=== PATIENT | male | born 1960 | race African-American/Black ===

== ENCOUNTER 2018-10-11 08:25 | Inpatient (IN) | payer MEDICARE, MEDICAID ==
[~2018-10-11] VITALS: Ht 180.3 cm; Wt 129.8 kg
[~2018-10-11 08:25] MED LIST: ASPI-1159 PO; CALC-25 PO; CALC-30 PO; CHOL200074 PO; DANT25CA PO; DIAZ5TAB PO; FURO40TA5 PO; GABA-529 PO; KLUD20 PO; LIP40 PO; MAGN400T27 PO; MORP30TA66 PO; MULT-348 PO; OMEP20TA2 PO; OXYB5TAB11 PO; OXYC30TA86 PO; PROM25TA13 PO; RANI150C12 PO; RIVA20TA PO; S350 PO; SPIR25TA PO; TAMS0.4C31 PO; WARF-53 PO; ZINC SULFATE PO
[2018-10-11] MEDS ORDERED: MORPHINE SULFATE 4 MG/ML CPJ (NOT FOR IM USE) IV STA (08:41)
[2018-10-11 10:08] LABS: BASOPHILS % 0.4 % (0.0-2.0); EOSINOPHILS % 0.6 % (0.0-5.0); HEMATOCRIT. 40.1 % (42.0-52.0); HEMOGLOBIN. 13.5 g/dL (14.0-18.0); LYMPHOCYTES % 7.9 % (20.0-50.0); MEAN CORPUSCULAR HEMOGLOBIN 33.1 pg (28.0-32.0); MEAN PLATELET VOLUME 7.9 fl (7.4-10.4); MONOCYTES % 7.6 % (2.0-8.0); NEUTROPHILS % 83.5 % (40.0-76.0); PLATELET 227 x1000/uL (130-400); RED BLOOD CELL COUNT 4.09 mill/uL (4.7-6.1); RED CELL DISTRIBUTION WIDTH 15.2 % (11.6-14.6)
[2018-10-11 10:11] LABS: INR 1.4; PROTHROMBIN TIME 14.3 sec (9.1-11.1)
[2018-10-11 10:14] LABS: CHLORIDE 103 mEq/L (98-107)
[2018-10-11] MEDS ORDERED: LEVOFLOXACIN 750MG PREMIX 150 ML IV ONE (11:00)
[2018-10-11] MEDS ORDERED: NA PHOS,M-B/NA PHOS,DI-BA ENEMA 118ML PR PRN (12:30)
[2018-10-11] MEDS ORDERED: NITROGLYCERIN 0.4MG TABLET SL SL PRN (12:30)
[2018-10-11] MEDS ORDERED: TRAMADOL 50MG TABLET PO PRN (12:30)
[2018-10-11] MEDS ORDERED: ENOXAPARIN 40MG/0.4ML SYR SUBCUT SCH (12:30)
[2018-10-11] MEDS ORDERED: GUAIFENESIN 200MG/10ML SUGAR FREE UDC PO PRN (12:30)
[2018-10-11] MEDS ORDERED: MAGNESIUM/ALUMINUM HYDROXIDE/SIMETHICONE 30ML UDC PO PRN (12:30)
[2018-10-11] MEDS ORDERED: LORAZEPAM 1MG TABLET PO PRN (12:30)
[2018-10-11] MEDS ORDERED: ONDANSETRON HCL 4MG/2ML INJ IV PRN (12:30)
[2018-10-11] MEDS ORDERED: ACETAMINOPHEN 325MG TABLET PO PRN (12:30)
[2018-10-11] MEDS ORDERED: CLONIDINE 0.1MG TABLET PO PRN (12:30)
[2018-10-11 12:34] LABS: CLARITY URINE TURBID (CLEAR); KETONES URINE TRACE (NEGATIVE); LEUKOCYTE ESTERASE URINE 3+ (NEGATIVE); NITRITE URINE POSITIVE (NEGATIVE); OCCULT BLOOD URINE 3+ (NEGATIVE); PH URINE 8.5 (4.5-8.0); PROTEIN URINE 4+ (NEGATIVE); SPECIFIC GRAVITY URINE 1.005 (1.005-1.030)
[2018-10-11 12:41] LABS: COLOR URINE AMBER (YELLOW)
[2018-10-11] MEDS ORDERED: LIDOCAINE HCL 1% 20ML VIAL (Pyxis) INJ ONE (13:36)
[2018-10-11] MEDS: SODIUM CHLORIDE 0.9% 1,000 ML IV SCH ×2 (15:13→23:59)
[2018-10-11] MEDS ORDERED: CEFTRIAXONE 1 G PREMIX 50 ML IV NR (15:30)
[2018-10-11] MEDS: MORPHINE SULFATE 4 MG/ML CPJ (NOT FOR IM USE) IV PRN (15:54)
[2018-10-11 16:39] LABS: CREATINE KINASE MB FRACTION 2.3 ng/mL (0.5-3.6)
[2018-10-11] MEDS ORDERED: SODIUM CHLORIDE 0.9% 1000ML BAG (SEPSIS BOLUS) IV ONE (18:45)
[2018-10-11 19:25] VITALS: BP 117/70
[2018-10-11 20:00] VITALS: BP 116/83
[2018-10-11] MEDS ORDERED: SODIUM CHLORIDE 0.9% 2,700 ML IV SCH (20:15)
[2018-10-11] MEDS ORDERED: ZOLPIDEM TARTRATE 5MG TABLET PO PRN (21:00)
[2018-10-11] MEDS ORDERED: IPRATROPIUM/ALBUTEROL 0.5-3(2.5)MG/3ML NEB HHN PRN (23:15)
[2018-10-12] VITALS: BP_SYST 116; BP_SYST 137; BP_DIAS 86
[2018-10-12] MEDS: MORPHINE SULFATE 4 MG/ML CPJ (NOT FOR IM USE) IV PRN ×6 (00:06→21:57)
[2018-10-12 04:00] VITALS: BP 118/73
[2018-10-12 08:00] VITALS: BP 122/71
[2018-10-12] MEDS: SODIUM CHLORIDE 0.9% 1,000 ML IV SCH ×2 (08:45→21:42)
[2018-10-12] MEDS ORDERED: CEFTRIAXONE 1 G PREMIX 50 ML IV SCH (09:00)
[2018-10-12] MEDS ORDERED: LEVOFLOXACIN 500MG PREMIX 100 ML IV SCH (10:00)
[2018-10-12] MEDS ORDERED: DEXTROSE 50% WATER 50ML SYRINGE IV PRN (10:15)
[2018-10-12] MEDS: ASCORBIC ACID 500 MG TABLET PO SCH ×3 (11:26→21:39)
[2018-10-12] MEDS: FAMOTIDINE 20MG TABLET PO SCH ×3 (11:26→21:39)
[2018-10-12] MEDS: HYDROCODONE/ACETAMINOPHEN 10/325MG TABLET PO PRN (11:27)
[2018-10-12] MEDS: ZINC SULFATE 220 MG ( 50 ) CAPSULE PO SCH (11:27)
[2018-10-12 12:00] VITALS: BP 113/78
[2018-10-12] MEDS ORDERED: PNEUMOCOCCAL 23-VAL P-SAC VAC 0.5 ML IM ONE (12:00)
[2018-10-12] MEDS ORDERED: INFLUENZA VIRUS VACCINE(AFLURIA) 0.5ML SYR IM ONE (12:00)
[2018-10-12] MEDS: BLOOD SUGAR DIAGNOSTIC STRIP TEST SCH ×3 (13:00→21:56)
[2018-10-12] MEDS: INSULIN LISPRO 100 UNITS/ML SUBCUT SCH ×3 (13:10→21:00)
[2018-10-12 16:36] VITALS: BP 118/79
[2018-10-12] MEDS: GABAPENTIN 300MG CAPSULE PO SCH ×2 (18:07→21:40)
[2018-10-12] MEDS: RIVAROXABAN 20 MG TABLET PO SCH ×2 (18:07)
[2018-10-12] MEDS: BACLOFEN 20MG TABLET PO SCH ×2 (18:07→21:40)
[2018-10-12 20:00] VITALS: BP 129/66
[2018-10-12] MEDS: IPRATROPIUM/ALBUTEROL 0.5-3(2.5)MG/3ML NEB HHN SCH (20:46)
[2018-10-13] VITALS (7 sets, daily range): BP systolic 102–155; BP diastolic 54–88
[2018-10-13] MEDS: ACETYLCYSTEINE 100MG/ML 10% VIAL 4ML INH SCH ×3 (01:01→13:38)
[2018-10-13] MEDS: IPRATROPIUM/ALBUTEROL 0.5-3(2.5)MG/3ML NEB HHN SCH ×4 (01:01→19:59)
[2018-10-13] MEDS: SODIUM CHLORIDE 0.9% 1,000 ML IV SCH ×2 (05:02→18:16)
[2018-10-13] MEDS: GABAPENTIN 300MG CAPSULE PO SCH ×3 (05:06→21:23)
[2018-10-13] MEDS: BACLOFEN 20MG TABLET PO SCH ×3 (05:07→21:23)
[2018-10-13] MEDS: MORPHINE SULFATE 4 MG/ML CPJ (NOT FOR IM USE) IV PRN ×4 (05:25→19:44)
[2018-10-13] MEDS: BLOOD SUGAR DIAGNOSTIC STRIP TEST SCH ×4 (05:59→20:53)
[2018-10-13] MEDS: INSULIN LISPRO 100 UNITS/ML SUBCUT SCH ×4 (08:10→21:00)
[2018-10-13] MEDS: ZINC SULFATE 220 MG ( 50 ) CAPSULE PO SCH (09:31)
[2018-10-13] MEDS: ASCORBIC ACID 500 MG TABLET PO SCH ×2 (09:31→21:23)
[2018-10-13] MEDS: FAMOTIDINE 20MG TABLET PO SCH ×2 (09:31→21:23)
[2018-10-13] MEDS: LEVOFLOXACIN 500MG PREMIX 100 ML IV SCH (09:52)
[2018-10-13] MEDS: CEFTRIAXONE 1 G PREMIX 50 ML IV SCH (11:30)
[2018-10-13 17:27] LABS: CREATINE KINASE MB FRACTION 1.5 ng/mL (0.5-3.6)
[2018-10-13] MEDS: RIVAROXABAN 20 MG TABLET PO SCH (17:30)
[2018-10-13] MEDS: HYDROCODONE/ACETAMINOPHEN 10/325MG TABLET PO PRN (20:53)
[2018-10-14] VITALS: BP 122/64
[2018-10-14] MEDS: MORPHINE SULFATE 4 MG/ML CPJ (NOT FOR IM USE) IV PRN ×5 (00:34→23:09)
[2018-10-14] MEDS: IPRATROPIUM/ALBUTEROL 0.5-3(2.5)MG/3ML NEB HHN SCH ×4 (01:33→21:00)
[2018-10-14] MEDS: ACETYLCYSTEINE 100MG/ML 10% VIAL 4ML INH SCH ×3 (01:33→09:28)
[2018-10-14 04:00] VITALS: BP 133/72
[2018-10-14] MEDS: SODIUM CHLORIDE 0.9% 1,000 ML IV SCH ×3 (05:00→20:17)
[2018-10-14] MEDS: BACLOFEN 20MG TABLET PO SCH ×3 (06:01→22:08)
[2018-10-14] MEDS: GABAPENTIN 300MG CAPSULE PO SCH ×3 (06:01→22:08)
[2018-10-14] MEDS: BLOOD SUGAR DIAGNOSTIC STRIP TEST SCH ×4 (06:01→21:00)
[2018-10-14] MEDS: INSULIN LISPRO 100 UNITS/ML SUBCUT SCH ×4 (07:47→21:00)
[2018-10-14 08:00] VITALS: BP 134/74
[2018-10-14] MEDS: FAMOTIDINE 20MG TABLET PO SCH ×2 (09:51→21:00)
[2018-10-14] MEDS: ZINC SULFATE 220 MG ( 50 ) CAPSULE PO SCH (09:51)
[2018-10-14] MEDS: ASCORBIC ACID 500 MG TABLET PO SCH ×2 (09:52→21:00)
[2018-10-14] MEDS: CEFTRIAXONE 1 G PREMIX 50 ML IV SCH (09:52)
[2018-10-14] MEDS: LEVOFLOXACIN 500MG PREMIX 100 ML IV SCH (10:00)
[2018-10-14 12:00] VITALS: BP 140/89
[2018-10-14 16:00] VITALS: BP 146/87
[2018-10-14] MEDS: BISACODYL 10MG SUPP PR PRN (18:32)
[2018-10-14] MEDS: RIVAROXABAN 20 MG TABLET PO SCH (18:32)
[2018-10-15 00:27] VITALS: BP 131/59
[2018-10-15] MEDS: IPRATROPIUM/ALBUTEROL 0.5-3(2.5)MG/3ML NEB HHN SCH ×4 (01:25→20:53)
[2018-10-15] MEDS: ACETYLCYSTEINE 100MG/ML 10% VIAL 4ML INH SCH ×3 (01:26→15:07)
[2018-10-15] MEDS: MORPHINE SULFATE 4 MG/ML CPJ (NOT FOR IM USE) IV PRN ×5 (02:07→21:56)
[2018-10-15 04:00] VITALS: BP_SYST 181; BP_SYST 213; BP_DIAS 105; BP_DIAS 87
[2018-10-15] MEDS: HYDROCODONE/ACETAMINOPHEN 10/325MG TABLET PO PRN ×3 (04:32→15:21)
[2018-10-15] MEDS: BACLOFEN 20MG TABLET PO SCH ×3 (05:33→21:18)
[2018-10-15] MEDS: GABAPENTIN 300MG CAPSULE PO SCH ×3 (05:33→21:18)
[2018-10-15] MEDS: SODIUM CHLORIDE 0.9% 1,000 ML IV SCH ×2 (06:17→21:18)
[2018-10-15] MEDS: BLOOD SUGAR DIAGNOSTIC STRIP TEST SCH ×4 (06:19→21:10)
[2018-10-15 08:00] VITALS: BP 173/88
[2018-10-15] MEDS: INSULIN LISPRO 100 UNITS/ML SUBCUT SCH ×4 (08:26→21:00)
[2018-10-15] MEDS: CEFTRIAXONE 1 G PREMIX 50 ML IV SCH (09:31)
[2018-10-15] MEDS: ASCORBIC ACID 500 MG TABLET PO SCH ×2 (09:31→21:18)
[2018-10-15] MEDS: ZINC SULFATE 220 MG ( 50 ) CAPSULE PO SCH (09:31)
[2018-10-15] MEDS: FAMOTIDINE 20MG TABLET PO SCH ×2 (09:31→21:18)
[2018-10-15] MEDS: NIFEDIPINE XL 60MG TAB PO SCH (11:00)
[2018-10-15 12:00] VITALS: BP 103/48
[2018-10-15 16:00] VITALS: BP 113/60
[2018-10-15] MEDS: RIVAROXABAN 20 MG TABLET PO SCH (17:44)
[2018-10-15 20:00] VITALS: BP 109/63
[2018-10-16] VITALS: BP 133/73
[2018-10-16] MEDS: HYDROCODONE/ACETAMINOPHEN 10/325MG TABLET PO PRN ×6 (00:04→22:35)
[2018-10-16] MEDS: IPRATROPIUM/ALBUTEROL 0.5-3(2.5)MG/3ML NEB HHN SCH ×4 (00:51→21:42)
[2018-10-16] MEDS: ACETYLCYSTEINE 100MG/ML 10% VIAL 4ML INH SCH ×2 (00:51→21:41)
[2018-10-16] MEDS: MORPHINE SULFATE 4 MG/ML CPJ (NOT FOR IM USE) IV PRN ×5 (02:22→19:42)
[2018-10-16 04:00] VITALS: BP 114/63
[2018-10-16] MEDS: GABAPENTIN 300MG CAPSULE PO SCH ×3 (05:59→21:43)
[2018-10-16] MEDS: BACLOFEN 20MG TABLET PO SCH ×3 (05:59→21:43)
[2018-10-16] MEDS: BISACODYL 10MG SUPP PR PRN (06:27)
[2018-10-16] MEDS: INSULIN LISPRO 100 UNITS/ML SUBCUT SCH ×4 (07:41→21:43)
[2018-10-16] MEDS: BLOOD SUGAR DIAGNOSTIC STRIP TEST SCH ×4 (07:41→20:36)
[2018-10-16 08:00] VITALS: BP 126/64
[2018-10-16] MEDS: NIFEDIPINE XL 60MG TAB PO SCH (09:00)
[2018-10-16] MEDS: ZINC SULFATE 220 MG ( 50 ) CAPSULE PO SCH (09:00)
[2018-10-16] MEDS: CEFTRIAXONE 1 G PREMIX 50 ML IV SCH (09:20)
[2018-10-16] MEDS: ASCORBIC ACID 500 MG TABLET PO SCH ×2 (09:21→21:43)
[2018-10-16] MEDS: FAMOTIDINE 20MG TABLET PO SCH ×2 (09:21→21:43)
[2018-10-16] MEDS: SODIUM CHLORIDE 0.9% 1,000 ML IV SCH ×3 (12:17→22:17)
[2018-10-16 16:00] VITALS: BP 100/58
[2018-10-16] MEDS: RIVAROXABAN 20 MG TABLET PO SCH (17:24)
[2018-10-16 20:00] VITALS: BP 105/67
[2018-10-17] VITALS: BP 113/64
[2018-10-17] MEDS: MORPHINE SULFATE 4 MG/ML CPJ (NOT FOR IM USE) IV PRN ×6 (01:01→22:00)
[2018-10-17] MEDS: ACETYLCYSTEINE 100MG/ML 10% VIAL 4ML INH SCH ×4 (03:33→15:39)
[2018-10-17] MEDS: IPRATROPIUM/ALBUTEROL 0.5-3(2.5)MG/3ML NEB HHN SCH ×4 (03:33→21:09)
[2018-10-17 04:00] VITALS: BP 109/66
[2018-10-17] MEDS: HYDROCODONE/ACETAMINOPHEN 10/325MG TABLET PO PRN (04:23)
[2018-10-17] MEDS: BACLOFEN 20MG TABLET PO SCH ×3 (05:41→21:50)
[2018-10-17] MEDS: GABAPENTIN 300MG CAPSULE PO SCH ×3 (05:41→21:53)
[2018-10-17] MEDS: BLOOD SUGAR DIAGNOSTIC STRIP TEST SCH ×4 (06:51→21:50)
[2018-10-17 08:00] VITALS: BP 108/63
[2018-10-17] MEDS: INSULIN LISPRO 100 UNITS/ML SUBCUT SCH ×4 (08:10→21:00)
[2018-10-17] MEDS: SODIUM CHLORIDE 0.9% 1,000 ML IV SCH ×2 (08:17→20:25)
[2018-10-17] MEDS: NIFEDIPINE XL 60MG TAB PO SCH (09:00)
[2018-10-17] MEDS: ASCORBIC ACID 500 MG TABLET PO SCH ×2 (09:05→21:50)
[2018-10-17] MEDS: FAMOTIDINE 20MG TABLET PO SCH ×2 (09:05→21:50)
[2018-10-17] MEDS: ZINC SULFATE 220 MG ( 50 ) CAPSULE PO SCH (09:06)
[2018-10-17 12:00] VITALS: BP 135/52
[2018-10-17] MEDS: CEPHALEXIN 250MG CAPSULE PO SCH ×2 (12:00→17:57)
[2018-10-17] MEDS ORDERED: CEPHALEXIN 250 MG/5 ML 100ML PO SCH (12:00)
[2018-10-17 16:00] VITALS: BP 117/58
[2018-10-17] MEDS: RIVAROXABAN 20 MG TABLET PO SCH (17:57)
[2018-10-17 20:00] VITALS: BP 124/88
[2018-10-18] VITALS: BP 124/79
[2018-10-18] MEDS: CEPHALEXIN 250MG CAPSULE PO SCH ×5 (00:28→23:49)
[2018-10-18] MEDS: SODIUM CHLORIDE 0.9% 1,000 ML IV SCH ×3 (00:36→23:36)
[2018-10-18] MEDS: IPRATROPIUM/ALBUTEROL 0.5-3(2.5)MG/3ML NEB HHN SCH ×4 (01:24→20:59)
[2018-10-18] MEDS: ACETYLCYSTEINE 100MG/ML 10% VIAL 4ML INH SCH (01:24)
[2018-10-18] MEDS: MORPHINE SULFATE 4 MG/ML CPJ (NOT FOR IM USE) IV PRN ×6 (02:15→23:36)
[2018-10-18] MEDS: BACLOFEN 20MG TABLET PO SCH ×3 (05:32→21:03)
[2018-10-18] MEDS: GABAPENTIN 300MG CAPSULE PO SCH ×3 (05:32→21:03)
[2018-10-18] MEDS: BLOOD SUGAR DIAGNOSTIC STRIP TEST SCH ×3 (06:29→20:44)
[2018-10-18 06:44] VITALS: BP 110/70
[2018-10-18] MEDS: INSULIN LISPRO 100 UNITS/ML SUBCUT SCH ×3 (08:10→20:44)
[2018-10-18 08:15] VITALS: BP 126/74
[2018-10-18] MEDS: DOCUSATE SODIUM 100MG CAPSULE PO PRN ×2 (09:08→17:31)
[2018-10-18] MEDS: ZINC SULFATE 220 MG ( 50 ) CAPSULE PO SCH (09:08)
[2018-10-18] MEDS: NIFEDIPINE XL 60MG TAB PO SCH (09:08)
[2018-10-18] MEDS: FAMOTIDINE 20MG TABLET PO SCH ×2 (09:08→21:04)
[2018-10-18] MEDS: ASCORBIC ACID 500 MG TABLET PO SCH ×2 (09:08→21:03)
[2018-10-18] MEDS: BISACODYL 10MG SUPP PR PRN (10:26)
[2018-10-18 12:29] VITALS: BP 153/74
[2018-10-18] MEDS: HYDROCODONE/ACETAMINOPHEN 10/325MG TABLET PO PRN ×3 (13:17→21:37)
[2018-10-18 16:00] VITALS: BP 106/62
[2018-10-18] MEDS: RIVAROXABAN 20 MG TABLET PO SCH (17:30)
[2018-10-18 20:00] VITALS: BP 109/58
[2018-10-18] MEDS ORDERED: SUMA25TA9 PO (23:22)
[2018-10-19] VITALS (7 sets, daily range): BP systolic 99–115; BP diastolic 50–61
[2018-10-19] MEDS: HYDROCODONE/ACETAMINOPHEN 10/325MG TABLET PO PRN ×3 (01:42→20:12)
[2018-10-19] MEDS: IPRATROPIUM/ALBUTEROL 0.5-3(2.5)MG/3ML NEB HHN SCH ×4 (02:20→21:00)
[2018-10-19] MEDS: MORPHINE SULFATE 4 MG/ML CPJ (NOT FOR IM USE) IV PRN ×5 (03:42→23:48)
[2018-10-19] MEDS: BACLOFEN 20MG TABLET PO SCH ×3 (04:56→22:16)
[2018-10-19] MEDS: GABAPENTIN 300MG CAPSULE PO SCH ×3 (04:56→22:15)
[2018-10-19] MEDS: CEPHALEXIN 250MG CAPSULE PO SCH ×3 (04:57→17:37)
[2018-10-19] MEDS: ASCORBIC ACID 500 MG TABLET PO SCH ×2 (07:33→20:12)
[2018-10-19] MEDS: FAMOTIDINE 20MG TABLET PO SCH ×2 (07:33→20:11)
[2018-10-19] MEDS: ZINC SULFATE 220 MG ( 50 ) CAPSULE PO SCH (07:33)
[2018-10-19] MEDS: NIFEDIPINE XL 60MG TAB PO SCH (07:33)
[2018-10-19] MEDS: INSULIN LISPRO 100 UNITS/ML SUBCUT SCH ×4 (07:34→21:00)
[2018-10-19] MEDS: BLOOD SUGAR DIAGNOSTIC STRIP TEST SCH ×4 (07:40→20:13)
[2018-10-19] MEDS: SODIUM CHLORIDE 0.9% 1,000 ML IV SCH (10:17)
[2018-10-19] MEDS: BUTALBITAL/ACETAMINOPHEN/CAFFEINE 50/325/40MG TABLET PO PRN (15:24)
[2018-10-19] MEDS: RIVAROXABAN 20 MG TABLET PO SCH (17:37)
[2018-10-19] MEDS: GUAIFENESIN 600MG ER TABLET PO SCH (20:11)
[2018-10-20] VITALS: BP 99/60
[2018-10-20] MEDS: CEPHALEXIN 250MG CAPSULE PO SCH ×2 (00:21→06:43)
[2018-10-20] MEDS: IPRATROPIUM/ALBUTEROL 0.5-3(2.5)MG/3ML NEB HHN SCH ×2 (02:03→08:54)
[2018-10-20] MEDS: HYDROCODONE/ACETAMINOPHEN 10/325MG TABLET PO PRN (02:18)
[2018-10-20 04:00] VITALS: BP 91/48
[2018-10-20] MEDS: MORPHINE SULFATE 4 MG/ML CPJ (NOT FOR IM USE) IV PRN ×2 (05:31→09:38)
[2018-10-20] MEDS: BUTALBITAL/ACETAMINOPHEN/CAFFEINE 50/325/40MG TABLET PO PRN (05:47)
[2018-10-20] MEDS: BACLOFEN 20MG TABLET PO SCH (06:43)
[2018-10-20] MEDS: BLOOD SUGAR DIAGNOSTIC STRIP TEST SCH (06:43)
[2018-10-20] MEDS: GABAPENTIN 300MG CAPSULE PO SCH (06:43)
[2018-10-20] MEDS: INSULIN LISPRO 100 UNITS/ML SUBCUT SCH (08:10)
[2018-10-20] MEDS: GUAIFENESIN 600MG ER TABLET PO SCH (09:03)
[2018-10-20] MEDS: ZINC SULFATE 220 MG ( 50 ) CAPSULE PO SCH (09:03)
[2018-10-20] MEDS: FAMOTIDINE 20MG TABLET PO SCH (09:03)
[2018-10-20] MEDS: NIFEDIPINE XL 60MG TAB PO SCH (09:03)
[2018-10-20] MEDS: ASCORBIC ACID 500 MG TABLET PO SCH (09:19)
[2018-10-20 09:38] VITALS: BP 180/72
[2018-10-20 10:25] LABS: BASOPHILS % 0.6 % (0.0-2.0); EOSINOPHILS % 5.6 % (0.0-5.0); HEMATOCRIT. 35.2 % (42.0-52.0); HEMOGLOBIN. 11.9 g/dL (14.0-18.0); LYMPHOCYTES % 27.4 % (20.0-50.0); MEAN CORPUSCULAR HEMOGLOBIN 32.7 pg (28.0-32.0); MEAN PLATELET VOLUME 7.7 fl (7.4-10.4); MONOCYTES % 11.4 % (2.0-8.0); PLATELET 192 x1000/uL (130-400); RED BLOOD CELL COUNT 3.63 mill/uL (4.7-6.1); RED CELL DISTRIBUTION WIDTH 15.3 % (11.6-14.6)
[2018-10-20 10:34] LABS: CHLORIDE 106 mEq/L (98-107)
== END 2018-10-20 12:30 | disposition home health service (06) | DRG 871 ==
LOC: ER 08:44 → 7WST 11:54 → SUPCPDRO 12:16 → ENRESERV 17:06 → 7WST 10-12 09:42
PROVIDERS: ADMIT Internal Medicine; ATTEND Internal Medicine
PROC: 05HY33Z Insertion of Infusion Device into Upper Vein, Percutaneous Approach (ICD-10-PCS; 2018-10-11)
PROC: B54NZZA Ultrasonography of Left Upper Extremity Veins, Guidance (ICD-10-PCS; 2018-10-11)
PROC: 0T2BX0Z Change Drainage Device in Bladder, External Approach (ICD-10-PCS; principal; 2018-10-12)
DX: A41.4 Sepsis due to anaerobes (principal); G82.50 Quadriplegia, unspecified; G92 Toxic encephalopathy; J96.20 Acute and chronic respiratory failure, unspecified whether with hypoxia or hypercapnia; E44.1 Mild protein-calorie malnutrition; I82.412 Acute embolism and thrombosis of left femoral vein; N12 Tubulo-interstitial nephritis, not specified as acute or chronic; T83.020A Displacement of cystostomy catheter, initial encounter; R65.20 Severe sepsis without septic shock; I10 Essential (primary) hypertension; J45.909 Unspecified asthma, uncomplicated; E11.9 Type 2 diabetes mellitus without complications; D63.8 Anemia in other chronic diseases classified elsewhere; N31.9 Neuromuscular dysfunction of bladder, unspecified; K59.00 Constipation, unspecified; E66.9 Obesity, unspecified; L97.529 Non-pressure chronic ulcer of other part of left foot with unspecified severity; E11.621 Type 2 diabetes mellitus with foot ulcer; Y83.8 Other surgical procedures as the cause of abnormal reaction of the patient, or of later complication, without mention of misadventure at the time of the procedure; Z86.718 Personal history of other venous thrombosis and embolism; Z93.0 Tracheostomy status; Z88.1 Allergy status to other antibiotic agents; Z79.899 Other long term (current) drug therapy; Y92.89 Other specified places as the place of occurrence of the external cause
CPT/HCPCS: 36415; 36569; 71045; 73130; 74176; 76937; 80048; 80061; 82550; 82553; 82962; 83036; 83605; 84484; 87077; 87186; 90686; 90732; 93308; 93970; 94640; 96365; 96366; 96368; 97110; 97162; 99285; A6261; C1725; C1893; J0696; J1815; J1956; J2270; J2405; J3490; J7040; J7608; J7620; A4315

== ENCOUNTER 2018-10-22 11:29 | Inpatient (IN) | payer MEDICARE, MEDICAID ==
[~2018-10-22] VITALS: Ht 182.9 cm; Wt 102.1 kg
[~2018-10-22 11:29] MED LIST changes: +SUMA25TA9 PO
[2018-10-22] MEDS ORDERED: PIPERACILLIN/TAZ 3.375G PREMIX 50 ML IV ONE (12:00)
[2018-10-22] MEDS ORDERED: SODIUM CHLORIDE 0.9% 1000ML BAG (SEPSIS BOLUS) IV ONE (12:00)
[2018-10-22] MEDS ORDERED: VANCOMYCIN 1 G PREMIX 200 ML IV ONE (12:00)
[2018-10-22 13:13] LABS: EOSINOPHILS % 4.8 % (0.0-5.0); HEMATOCRIT. 35.6 % (42.0-52.0); LYMPHOCYTES % 22.8 % (20.0-50.0); MEAN CORPUSCULAR HEMOGLOBIN 33.1 pg (28.0-32.0); MEAN CORPUSCULAR VOLUME 98.4 fL (80.0-94.0); MEAN PLATELET VOLUME 7.4 fl (7.4-10.4); MONOCYTES % 12.8 % (2.0-8.0); NEUTROPHILS % 58.6 % (40.0-76.0); PLATELET 214 x1000/uL (130-400); RED BLOOD CELL COUNT 3.62 mill/uL (4.7-6.1); RED CELL DISTRIBUTION WIDTH 15.6 % (11.6-14.6)
[2018-10-22 13:19] LABS: CHLORIDE 98 mEq/L (98-107)
[2018-10-22] MEDS ORDERED: LIDOCAINE HCL 1% 20ML VIAL (Pyxis) INJ ONE (13:46)
[2018-10-22] MEDS ORDERED: HYDROCODONE/ACETAMINOPHEN 5/325MG TABLET PO ONE (15:30)
[2018-10-22 16:08] LABS: CLARITY URINE CLEAR (CLEAR); COLOR URINE YELLOW (YELLOW); KETONES URINE NEGATIVE (NEGATIVE); LEUKOCYTE ESTERASE URINE 2+ (NEGATIVE); NITRITE URINE POSITIVE (NEGATIVE); OCCULT BLOOD URINE 1+ (NEGATIVE); PROTEIN URINE NEGATIVE (NEGATIVE); SPECIFIC GRAVITY URINE 1.009 (1.005-1.030); UROBILINOGEN URINE 0.2 E.U./dL (0.2-1.0)
[2018-10-22] MEDS ORDERED: IBUPROFEN 600MG TABLET PO ONE (17:15)
[2018-10-22] MEDS ORDERED: MORPHINE SULFATE 4 MG/ML CPJ (NOT FOR IM USE) IV ONE (18:00)
[2018-10-22] MEDS ORDERED: MORPHINE SULFATE 4 MG/ML CPJ (NOT FOR IM USE) IV NR (23:00)
[2018-10-23 03:05] VITALS: BP 143/68
[2018-10-23] MEDS: HYDROCODONE/ACETAMINOPHEN 10/325MG TABLET PO PRN ×3 (05:33→14:45)
[2018-10-23 08:00] VITALS: BP 122/63
[2018-10-23] MEDS ORDERED: ACETAMINOPHEN 650MG SUPP PR PRN (08:15)
[2018-10-23] MEDS ORDERED: ACETAMINOPHEN 325MG TABLET PO PRN (08:15)
[2018-10-23] MEDS ORDERED: CLONIDINE 0.1MG TABLET PO PRN (08:15)
[2018-10-23] MEDS ORDERED: DIPHENHYDRAMINE 50MG/ML VIAL IV PRN (08:15)
[2018-10-23] MEDS ORDERED: DOCUSATE SODIUM 100MG CAPSULE PO PRN (08:15)
[2018-10-23] MEDS ORDERED: HYDROCODONE/ACETAMINOPHEN 5/325MG TABLET PO PRN (08:15)
[2018-10-23] MEDS ORDERED: MAGNESIUM/ALUMINUM HYDROXIDE/SIMETHICONE 30ML UDC PO PRN (08:15)
[2018-10-23] MEDS ORDERED: ONDANSETRON HCL 4MG/2ML INJ IV PRN (08:15)
[2018-10-23] MEDS ORDERED: GUAIFENESIN 200MG/10ML SUGAR FREE UDC PO PRN (08:15)
[2018-10-23] MEDS ORDERED: ENOXAPARIN 40MG/0.4ML SYR SUBCUT SCH (09:00)
[2018-10-23] MEDS ORDERED: IPRATROPIUM/ALBUTEROL 0.5-3(2.5)MG/3ML NEB INH PRN (09:00)
[2018-10-23 12:00] VITALS: BP 121/67
[2018-10-23] MEDS: SODIUM CHLORIDE 0.9% INJ 3ML FLUSH IVF SCH ×2 (14:45→21:06)
[2018-10-23] MEDS: IPRATROPIUM/ALBUTEROL 0.5-3(2.5)MG/3ML NEB INH SCH ×2 (15:40→21:31)
[2018-10-23 16:00] VITALS: BP 119/62
[2018-10-23] MEDS ORDERED: SUMATRIPTAN SUCCINATE 25MG TABLET PO SCH (18:15)
[2018-10-23] MEDS ORDERED: WARFARIN SODIUM 5MG TABLET PO SCH (18:15)
[2018-10-23] MEDS ORDERED: MEDICATION NOT ON FORMULARY EA (Ranitidine Hcl 150 MG) PO SCH (18:15)
[2018-10-23] MEDS ORDERED: ASPIRIN 81MG EC TABLET PO SCH (18:15)
[2018-10-23] MEDS ORDERED: PROMETHAZINE HCL 25 MG PO PRN (18:15)
[2018-10-23] MEDS ORDERED: FUROSEMIDE 40MG TABLET PO SCH (18:15)
[2018-10-23] MEDS ORDERED: MORPHINE SULFATE 15MG TABLET SR PO NR (19:00)
[2018-10-23] MEDS: MULTIVITAMINS,THER W-MINERALS TABLET PO SCH (19:18)
[2018-10-23] MEDS: ATORVASTATIN CALCIUM 40MG TABLET PO SCH (19:18)
[2018-10-23] MEDS: GABAPENTIN 100MG CAPSULE PO SCH (19:18)
[2018-10-23] MEDS: OMEPRAZOLE 20MG CAPSULE EXTENDED RELEASE PO SCH (19:18)
[2018-10-23] MEDS: MAGNESIUM OXIDE 400MG TABLET PO SCH (19:18)
[2018-10-23] MEDS: CALCIUM CARBONATE/VITAMIN D3 500MG TABLET PO SCH (19:18)
[2018-10-23] MEDS: OXYBUTYNIN CHLORIDE 5MG TABLET PO SCH (19:19)
[2018-10-23] MEDS: CHOLECALCIFEROL (D3) 1000 UNIT TABLET PO SCH (19:19)
[2018-10-23 20:00] VITALS: BP 122/62
[2018-10-23] MEDS: RIVAROXABAN 20 MG TABLET PO SCH (21:05)
[2018-10-23] MEDS: TAMSULOSIN HCL 0.4MG SR CAPSULE PO SCH (21:05)
[2018-10-23] MEDS: DANTROLENE SODIUM 25MG CAPSULE PO SCH (21:05)
[2018-10-23] MEDS ORDERED: CARISOPRODOL 350 MG TABLET PO SCH (22:00)
[2018-10-24] VITALS: BP 109/53
[2018-10-24] MEDS: IPRATROPIUM/ALBUTEROL 0.5-3(2.5)MG/3ML NEB INH SCH ×3 (02:02→20:33)
[2018-10-24 03:22] LABS: CLARITY URINE CLEAR (CLEAR); COLOR URINE YELLOW (YELLOW); KETONES URINE NEGATIVE (NEGATIVE); LEUKOCYTE ESTERASE URINE 1+ (NEGATIVE); NITRITE URINE POSITIVE (NEGATIVE); OCCULT BLOOD URINE 1+ (NEGATIVE); PH URINE >=9.0 (4.5-8.0); PROTEIN URINE NEGATIVE (NEGATIVE); SPECIFIC GRAVITY URINE 1.012 (1.005-1.030); UROBILINOGEN URINE 0.2 E.U./dL (0.2-1.0)
[2018-10-24 04:00] VITALS: BP 113/55
[2018-10-24 04:02] LABS: *AMPHETAMINES SCREEN URINE NEGATIVE (NEGATIVE); *BARBITURATES SCREEN URINE PRESUMTIVE POSITIVE (NEGATIVE); *BENZODIAZEPINES SCREEN URINE NEGATIVE (NEGATIVE); *COCAINE SCREEN URINE NEGATIVE (NEGATIVE); METHADONE URINE SCREEN NEGATIVE (NEGATIVE); OPIATES URINE SCREEN PRESUMTIVE POSITIVE (NEGATIVE); PHENCYCLIDINE URINE SCREEN NEGATIVE (NEGATIVE)
[2018-10-24 04:03] LABS: CANNABINOID URINE SCREEN PRESUMTIVE POSITIVE (NEGATIVE)
[2018-10-24] MEDS: SODIUM CHLORIDE 0.9% INJ 3ML FLUSH IVF SCH ×2 (06:55→12:23)
[2018-10-24 08:00] VITALS: BP 113/63
[2018-10-24] MEDS: OMEPRAZOLE 20MG CAPSULE EXTENDED RELEASE PO SCH (08:47)
[2018-10-24] MEDS: DANTROLENE SODIUM 25MG CAPSULE PO SCH ×3 (08:47→17:45)
[2018-10-24] MEDS: CHOLECALCIFEROL (D3) 1000 UNIT TABLET PO SCH (08:48)
[2018-10-24] MEDS: OXYBUTYNIN CHLORIDE 5MG TABLET PO SCH ×3 (08:48→17:44)
[2018-10-24] MEDS: GABAPENTIN 100MG CAPSULE PO SCH ×3 (08:48→17:45)
[2018-10-24] MEDS: CALCIUM CARBONATE/VITAMIN D3 500MG TABLET PO SCH ×2 (08:48→17:45)
[2018-10-24] MEDS: FUROSEMIDE 40MG TABLET PO SCH (08:48)
[2018-10-24] MEDS: MAGNESIUM OXIDE 400MG TABLET PO SCH (08:48)
[2018-10-24] MEDS: MULTIVITAMINS,THER W-MINERALS TABLET PO SCH (08:49)
[2018-10-24] MEDS ORDERED: MORPHINE SULFATE 30MG TABLET SR PO SCH (09:00)
[2018-10-24 12:00] VITALS: BP 111/60
[2018-10-24] MEDS: CEFTRIAXONE 1 G PREMIX 50 ML IV SCH (13:19)
[2018-10-24] MEDS ORDERED: LACTULOSE 20G/30ML UDC PO NR (13:47)
[2018-10-24] MEDS ORDERED: OXYCODONE HCL 30 MG PO SCH (14:00)
[2018-10-24] MEDS ORDERED: HYDROCODONE/ACETAMINOPHEN 10/325MG TABLET PO PRN (14:15)
[2018-10-24 16:00] VITALS: BP 127/62
[2018-10-24 16:37] LABS: *AMPHETAMINES SCREEN URINE NEGATIVE (NEGATIVE); *BARBITURATES SCREEN URINE PRESUMTIVE POSITIVE (NEGATIVE)
[2018-10-24 16:38] LABS: *BENZODIAZEPINES SCREEN URINE NEGATIVE (NEGATIVE); *COCAINE SCREEN URINE NEGATIVE (NEGATIVE); CANNABINOID URINE SCREEN PRESUMTIVE POSITIVE (NEGATIVE); METHADONE URINE SCREEN NEGATIVE (NEGATIVE); OPIATES URINE SCREEN PRESUMTIVE POSITIVE (NEGATIVE); PHENCYCLIDINE URINE SCREEN NEGATIVE (NEGATIVE)
[2018-10-24 16:51] LABS: BASOPHILS % 0.4 % (0.0-2.0); EOSINOPHILS % 3.2 % (0.0-5.0); HEMATOCRIT. 38.9 % (42.0-52.0); HEMOGLOBIN. 12.8 g/dL (14.0-18.0); LYMPHOCYTES % 14.8 % (20.0-50.0); MEAN CORPUSCULAR HEMOGLOBIN 32.4 pg (28.0-32.0); MEAN CORPUSCULAR VOLUME 98.5 fL (80.0-94.0); MEAN PLATELET VOLUME 7.6 fl (7.4-10.4); MONOCYTES % 14.6 % (2.0-8.0); PLATELET 174 x1000/uL (130-400); RED BLOOD CELL COUNT 3.94 mill/uL (4.7-6.1)
[2018-10-24 17:02] LABS: CHLORIDE 100 mEq/L (98-107)
[2018-10-24 17:10] LABS: LDL CHOLESTEROL 48 mg/dL (5-100)
[2018-10-24 17:12] LABS: HDL CHOLESTEROL 41 mg/dL (40-59)
[2018-10-24] MEDS: RIVAROXABAN 20 MG TABLET PO SCH (17:45)
[2018-10-24] MEDS: ATORVASTATIN CALCIUM 40MG TABLET PO SCH (17:45)
[2018-10-24 20:00] VITALS: BP 106/52
[2018-10-24] MEDS: TAMSULOSIN HCL 0.4MG SR CAPSULE PO SCH (21:40)
[2018-10-24] MEDS: OXYCODONE HCL 10MG TABLET SR 12HR PO SCH (21:41)
[2018-10-25] VITALS: BP 106/52
[2018-10-25] MEDS: IPRATROPIUM/ALBUTEROL 0.5-3(2.5)MG/3ML NEB INH SCH ×4 (01:18→20:34)
[2018-10-25 04:00] VITALS: BP 108/55
[2018-10-25] MEDS: CEFTRIAXONE 1 G PREMIX 50 ML IV SCH (05:48)
[2018-10-25] MEDS: SODIUM CHLORIDE 0.9% INJ 3ML FLUSH IVF SCH ×3 (05:48→23:19)
[2018-10-25 08:00] VITALS: BP 123/60
[2018-10-25] MEDS: DANTROLENE SODIUM 25MG CAPSULE PO SCH ×3 (09:25→17:00)
[2018-10-25] MEDS: CALCIUM CARBONATE/VITAMIN D3 500MG TABLET PO SCH ×2 (09:25→18:22)
[2018-10-25] MEDS: GABAPENTIN 100MG CAPSULE PO SCH ×3 (09:26→18:21)
[2018-10-25] MEDS: MAGNESIUM OXIDE 400MG TABLET PO SCH (09:26)
[2018-10-25] MEDS: MULTIVITAMINS,THER W-MINERALS TABLET PO SCH (09:26)
[2018-10-25] MEDS: FUROSEMIDE 40MG TABLET PO SCH (09:27)
[2018-10-25] MEDS: OXYBUTYNIN CHLORIDE 5MG TABLET PO SCH ×3 (09:27→18:21)
[2018-10-25] MEDS: FAMOTIDINE 20MG TABLET PO SCH ×2 (09:27→20:59)
[2018-10-25] MEDS: CHOLECALCIFEROL (D3) 1000 UNIT TABLET PO SCH (09:30)
[2018-10-25] MEDS: OXYCODONE HCL 10MG TABLET SR 12HR PO SCH ×2 (10:28→20:59)
[2018-10-25 12:00] VITALS: BP 111/63
[2018-10-25 16:00] VITALS: BP 130/54
[2018-10-25] MEDS: ATORVASTATIN CALCIUM 40MG TABLET PO SCH (18:22)
[2018-10-25] MEDS: RIVAROXABAN 20 MG TABLET PO SCH (18:22)
[2018-10-25 20:00] VITALS: BP 118/59
[2018-10-25 20:34] LABS: BASOPHILS % 0.8 % (0.0-2.0); HEMATOCRIT. 37.2 % (42.0-52.0); HEMOGLOBIN. 12.4 g/dL (14.0-18.0); LYMPHOCYTES % 22.7 % (20.0-50.0); MEAN CORPUSCULAR HEMOGLOBIN 32.6 pg (28.0-32.0); MEAN CORPUSCULAR VOLUME 97.9 fL (80.0-94.0); MEAN PLATELET VOLUME 7.5 fl (7.4-10.4); MONOCYTES % 12.7 % (2.0-8.0); NEUTROPHILS % 59.8 % (40.0-76.0); PLATELET 211 x1000/uL (130-400)
[2018-10-25 20:48] LABS: INR 1.4
[2018-10-25 20:51] LABS: CHLORIDE 99 mEq/L (98-107)
[2018-10-25] MEDS: GUAIFENESIN 600MG ER TABLET PO SCH (20:58)
[2018-10-25] MEDS: TAMSULOSIN HCL 0.4MG SR CAPSULE PO SCH (20:59)
[2018-10-26] VITALS: BP 106/49
[2018-10-26] MEDS: IPRATROPIUM/ALBUTEROL 0.5-3(2.5)MG/3ML NEB INH SCH ×4 (01:17→21:33)
[2018-10-26] MEDS: HYDROCODONE/ACETAMINOPHEN 10/325MG TABLET PO PRN ×2 (01:44→13:29)
[2018-10-26 04:00] VITALS: BP 110/51
[2018-10-26] MEDS: SODIUM CHLORIDE 0.9% INJ 3ML FLUSH IVF SCH ×3 (05:22→22:00)
[2018-10-26] MEDS: CEFTRIAXONE 1 G PREMIX 50 ML IV SCH (05:22)
[2018-10-26 08:00] VITALS: BP 112/57
[2018-10-26] MEDS: GUAIFENESIN 600MG ER TABLET PO SCH ×3 (08:22→21:58)
[2018-10-26] MEDS: DANTROLENE SODIUM 25MG CAPSULE PO SCH ×3 (08:22→18:20)
[2018-10-26] MEDS: CALCIUM CARBONATE/VITAMIN D3 500MG TABLET PO SCH ×2 (08:23→18:20)
[2018-10-26] MEDS: FUROSEMIDE 40MG TABLET PO SCH (08:23)
[2018-10-26] MEDS: GABAPENTIN 100MG CAPSULE PO SCH ×3 (08:23→18:21)
[2018-10-26] MEDS: OXYBUTYNIN CHLORIDE 5MG TABLET PO SCH ×3 (08:23→18:21)
[2018-10-26] MEDS: MAGNESIUM OXIDE 400MG TABLET PO SCH (08:24)
[2018-10-26] MEDS: MULTIVITAMINS,THER W-MINERALS TABLET PO SCH (08:24)
[2018-10-26] MEDS: FAMOTIDINE 20MG TABLET PO SCH ×3 (08:24→21:58)
[2018-10-26] MEDS: CHOLECALCIFEROL (D3) 1000 UNIT TABLET PO SCH (08:24)
[2018-10-26] MEDS: OXYCODONE HCL 10MG TABLET SR 12HR PO SCH ×2 (08:26→22:01)
[2018-10-26 12:00] VITALS: BP 114/65
[2018-10-26 16:00] VITALS: BP 129/60
[2018-10-26] MEDS: RIVAROXABAN 20 MG TABLET PO SCH (18:20)
[2018-10-26] MEDS: ATORVASTATIN CALCIUM 40MG TABLET PO SCH (18:21)
[2018-10-26 20:00] VITALS: BP 115/67
[2018-10-26] MEDS: TAMSULOSIN HCL 0.4MG SR CAPSULE PO SCH ×2 (21:00→21:58)
[2018-10-26] MEDS ORDERED: BISACODYL 10MG SUPP PR NR (22:30)
[2018-10-26] MEDS: NA PHOS,M-B/NA PHOS,DI-BA ENEMA 118ML PR PRN (22:31)
[2018-10-27] VITALS: BP 104/49
[2018-10-27] MEDS: HYDROCODONE/ACETAMINOPHEN 10/325MG TABLET PO PRN ×2 (00:25→05:45)
[2018-10-27] MEDS: IPRATROPIUM/ALBUTEROL 0.5-3(2.5)MG/3ML NEB INH SCH ×4 (02:45→22:16)
[2018-10-27 04:00] VITALS: BP 111/68
[2018-10-27] MEDS: CEFTRIAXONE 1 G PREMIX 50 ML IV SCH (06:17)
[2018-10-27 08:00] VITALS: BP 122/64
[2018-10-27] MEDS: CALCIUM CARBONATE/VITAMIN D3 500MG TABLET PO SCH ×2 (08:12→17:15)
[2018-10-27] MEDS: GABAPENTIN 100MG CAPSULE PO SCH ×3 (08:12→17:16)
[2018-10-27] MEDS: MULTIVITAMINS,THER W-MINERALS TABLET PO SCH (08:12)
[2018-10-27] MEDS: MAGNESIUM OXIDE 400MG TABLET PO SCH (08:12)
[2018-10-27] MEDS: FUROSEMIDE 40MG TABLET PO SCH (08:13)
[2018-10-27] MEDS: CHOLECALCIFEROL (D3) 1000 UNIT TABLET PO SCH (08:13)
[2018-10-27] MEDS: FAMOTIDINE 20MG TABLET PO SCH ×2 (08:13→21:08)
[2018-10-27] MEDS: GUAIFENESIN 600MG ER TABLET PO SCH ×2 (08:13→21:08)
[2018-10-27] MEDS: DANTROLENE SODIUM 25MG CAPSULE PO SCH ×3 (08:13→17:24)
[2018-10-27] MEDS: OXYBUTYNIN CHLORIDE 5MG TABLET PO SCH ×3 (08:14→17:15)
[2018-10-27] MEDS: OXYCODONE HCL 10MG TABLET SR 12HR PO SCH ×3 (08:14→22:10)
[2018-10-27] MEDS: SODIUM CHLORIDE 0.9% INJ 3ML FLUSH IVF SCH ×3 (08:14→22:11)
[2018-10-27 12:00] VITALS: BP 119/63
[2018-10-27] MEDS ORDERED: BISACODYL 10MG SUPP PR NR (12:00)
[2018-10-27 16:00] VITALS: BP 121/66
[2018-10-27] MEDS: RIVAROXABAN 20 MG TABLET PO SCH (17:15)
[2018-10-27] MEDS: ATORVASTATIN CALCIUM 40MG TABLET PO SCH (17:16)
[2018-10-27] MEDS: NA PHOS,M-B/NA PHOS,DI-BA ENEMA 118ML PR PRN (17:16)
[2018-10-27 20:00] VITALS: BP 118/77
[2018-10-27] MEDS: TAMSULOSIN HCL 0.4MG SR CAPSULE PO SCH (21:13)
[2018-10-28] VITALS: BP 116/74
[2018-10-28] MEDS: HYDROCODONE/ACETAMINOPHEN 10/325MG TABLET PO PRN ×2 (01:55→14:56)
[2018-10-28] MEDS: IPRATROPIUM/ALBUTEROL 0.5-3(2.5)MG/3ML NEB INH SCH ×4 (02:50→21:12)
[2018-10-28 04:00] VITALS: BP 106/47
[2018-10-28] MEDS: OXYCODONE HCL 10MG TABLET SR 12HR PO SCH ×2 (07:32→20:07)
[2018-10-28 08:00] VITALS: BP_SYST 104; BP_SYST 108; BP_DIAS 64; BP_DIAS 66
[2018-10-28] MEDS ORDERED: *NO ASPIRIN X 24 HOURS XX SCH (08:15)
[2018-10-28] MEDS: SODIUM CHLORIDE 0.9% INJ 3ML FLUSH IVF SCH ×2 (08:46→14:00)
[2018-10-28] MEDS ORDERED: CEFTRIAXONE 1,000 MG in DEXTROSE 5% WATER 50 ML IV SCH (09:00)
[2018-10-28] MEDS: DANTROLENE SODIUM 25MG CAPSULE PO SCH ×3 (09:17→17:37)
[2018-10-28] MEDS: GABAPENTIN 100MG CAPSULE PO SCH ×3 (09:17→17:40)
[2018-10-28] MEDS: MULTIVITAMINS,THER W-MINERALS TABLET PO SCH (09:17)
[2018-10-28] MEDS: FUROSEMIDE 40MG TABLET PO SCH (09:17)
[2018-10-28] MEDS: CALCIUM CARBONATE/VITAMIN D3 500MG TABLET PO SCH ×2 (09:17→17:37)
[2018-10-28] MEDS: OXYBUTYNIN CHLORIDE 5MG TABLET PO SCH ×3 (09:17→17:37)
[2018-10-28] MEDS: MAGNESIUM OXIDE 400MG TABLET PO SCH (09:17)
[2018-10-28] MEDS: FAMOTIDINE 20MG TABLET PO SCH ×2 (09:17→20:06)
[2018-10-28] MEDS: CHOLECALCIFEROL (D3) 1000 UNIT TABLET PO SCH (09:17)
[2018-10-28 12:00] VITALS: BP 104/64
[2018-10-28] MEDS: GUAIFENESIN 600MG ER TABLET PO SCH ×2 (13:10→20:06)
[2018-10-28] MEDS ORDERED: AMIKACIN SULFATE 750 MG in SODIUM CHLORIDE 0.9% 100 ML IV SCH (15:00)
[2018-10-28] MEDS ORDERED: BISACODYL 10MG SUPP PR PRN (16:15)
[2018-10-28] MEDS ORDERED: BISACODYL 5MG TABLET PO PRN (16:15)
[2018-10-28] MEDS: ATORVASTATIN CALCIUM 40MG TABLET PO SCH (17:36)
[2018-10-28] MEDS: RIVAROXABAN 20 MG TABLET PO SCH (17:37)
[2018-10-28] MEDS: NA PHOS,M-B/NA PHOS,DI-BA ENEMA 118ML PR PRN (18:17)
[2018-10-28 18:57] VITALS: BP 106/66
[2018-10-28] MEDS: TAMSULOSIN HCL 0.4MG SR CAPSULE PO SCH (20:06)
[2018-10-29] VITALS: BP 116/72
[2018-10-29] MEDS: IPRATROPIUM/ALBUTEROL 0.5-3(2.5)MG/3ML NEB INH SCH ×4 (01:09→21:01)
[2018-10-29] MEDS: AMIKACIN 500MG in SODIUM CHLORIDE 0.9% 100ML IV SCH ×2 (03:36→14:45)
[2018-10-29 04:00] VITALS: BP 112/71
[2018-10-29] MEDS: HYDROCODONE/ACETAMINOPHEN 10/325MG TABLET PO PRN ×2 (04:14→20:34)
[2018-10-29 08:00] VITALS: BP 115/60
[2018-10-29] MEDS: GABAPENTIN 100MG CAPSULE PO SCH ×3 (08:52→16:21)
[2018-10-29] MEDS: CALCIUM CARBONATE/VITAMIN D3 500MG TABLET PO SCH ×2 (08:52→16:21)
[2018-10-29] MEDS: FAMOTIDINE 20MG TABLET PO SCH ×2 (08:52→20:33)
[2018-10-29] MEDS: OXYBUTYNIN CHLORIDE 5MG TABLET PO SCH ×3 (08:52→16:21)
[2018-10-29] MEDS: MAGNESIUM OXIDE 400MG TABLET PO SCH (08:52)
[2018-10-29] MEDS: GUAIFENESIN 600MG ER TABLET PO SCH ×2 (08:52→20:33)
[2018-10-29] MEDS: FUROSEMIDE 40MG TABLET PO SCH (08:52)
[2018-10-29] MEDS: MULTIVITAMINS,THER W-MINERALS TABLET PO SCH (08:53)
[2018-10-29] MEDS: CHOLECALCIFEROL (D3) 1000 UNIT TABLET PO SCH (08:53)
[2018-10-29] MEDS: DANTROLENE SODIUM 25MG CAPSULE PO SCH ×3 (09:00→17:00)
[2018-10-29 12:00] VITALS: BP 148/84
[2018-10-29] MEDS: NA PHOS,M-B/NA PHOS,DI-BA ENEMA 118ML PR PRN (12:14)
[2018-10-29] MEDS: OXYCODONE HCL 10MG TABLET SR 12HR PO SCH ×2 (14:46→22:11)
[2018-10-29] MEDS ORDERED: DANT100 MT (15:32)
[2018-10-29 16:00] VITALS: BP 104/64
[2018-10-29] MEDS: RIVAROXABAN 20 MG TABLET PO SCH (16:21)
[2018-10-29] MEDS: ATORVASTATIN CALCIUM 40MG TABLET PO SCH (16:21)
[2018-10-29 20:00] VITALS: BP 140/56
[2018-10-29] MEDS: TAMSULOSIN HCL 0.4MG SR CAPSULE PO SCH (20:33)
[2018-10-29] MEDS: SODIUM CHLORIDE 0.9% INJ 3ML FLUSH IVF SCH (22:11)
[2018-10-30] MEDS: IPRATROPIUM/ALBUTEROL 0.5-3(2.5)MG/3ML NEB INH SCH ×4 (02:17→21:00)
[2018-10-30] MEDS: HYDROCODONE/ACETAMINOPHEN 10/325MG TABLET PO PRN (03:33)
[2018-10-30] MEDS: AMIKACIN 500MG in SODIUM CHLORIDE 0.9% 100ML IV SCH ×2 (03:37→16:26)
[2018-10-30 04:00] VITALS: BP 102/52
[2018-10-30 07:28] LABS: HEMATOCRIT. 36.5 % (42.0-52.0); HEMOGLOBIN. 12.1 g/dL (14.0-18.0); MEAN CORPUSCULAR HEMOGLOBIN 32.5 pg (28.0-32.0); MEAN PLATELET VOLUME 7.7 fl (7.4-10.4); PLATELET 182 x1000/uL (130-400); RED BLOOD CELL COUNT 3.72 mill/uL (4.7-6.1); RED CELL DISTRIBUTION WIDTH 14.2 % (11.6-14.6)
[2018-10-30 07:33] LABS: CHLORIDE 100 mEq/L (98-107)
[2018-10-30 08:00] VITALS: BP 104/53
[2018-10-30] MEDS: GUAIFENESIN 600MG ER TABLET PO SCH ×2 (09:00→20:09)
[2018-10-30] MEDS: OXYCODONE HCL 10MG TABLET SR 12HR PO SCH ×3 (09:32→22:02)
[2018-10-30] MEDS: MAGNESIUM OXIDE 400MG TABLET PO SCH (10:06)
[2018-10-30] MEDS: OXYBUTYNIN CHLORIDE 5MG TABLET PO SCH ×3 (10:06→16:39)
[2018-10-30] MEDS: DANTROLENE SODIUM 25MG CAPSULE PO SCH ×3 (10:07→16:40)
[2018-10-30] MEDS: CHOLECALCIFEROL (D3) 1000 UNIT TABLET PO SCH (10:07)
[2018-10-30] MEDS: CALCIUM CARBONATE/VITAMIN D3 500MG TABLET PO SCH ×2 (10:08→16:26)
[2018-10-30] MEDS: FUROSEMIDE 40MG TABLET PO SCH (10:08)
[2018-10-30] MEDS: FAMOTIDINE 20MG TABLET PO SCH ×2 (10:08→20:09)
[2018-10-30] MEDS: MULTIVITAMINS,THER W-MINERALS TABLET PO SCH (10:08)
[2018-10-30] MEDS: GABAPENTIN 100MG CAPSULE PO SCH ×3 (10:08→16:26)
[2018-10-30] MEDS: NA PHOS,M-B/NA PHOS,DI-BA ENEMA 118ML PR PRN (10:09)
[2018-10-30 12:00] VITALS: BP 100/60
[2018-10-30] MEDS: SODIUM CHLORIDE 0.9% INJ 3ML FLUSH IVF SCH (14:02)
[2018-10-30] MEDS ORDERED: POTASSIUM CHLORIDE 20MEQ TABLET SR PO PRN (15:00)
[2018-10-30 16:00] VITALS: BP 105/63
[2018-10-30] MEDS: RIVAROXABAN 20 MG TABLET PO SCH (16:26)
[2018-10-30] MEDS: ATORVASTATIN CALCIUM 40MG TABLET PO SCH (16:26)
[2018-10-30] MEDS ORDERED: HYDROCODONE/ACETAMINOPHEN 10/325MG TABLET PO PRN (17:45)
[2018-10-30] MEDS: TAMSULOSIN HCL 0.4MG SR CAPSULE PO SCH (20:09)
[2018-10-31] VITALS: BP 112/59
[2018-10-31] MEDS: AMIKACIN 500MG in SODIUM CHLORIDE 0.9% 100ML IV SCH ×2 (03:02→15:05)
[2018-10-31] MEDS: HYDROCODONE/ACETAMINOPHEN 10/325MG TABLET PO PRN ×3 (03:12→17:03)
[2018-10-31] MEDS: IPRATROPIUM/ALBUTEROL 0.5-3(2.5)MG/3ML NEB INH SCH ×5 (03:39→21:21)
[2018-10-31 04:00] VITALS: BP 103/46
[2018-10-31] MEDS: OXYCODONE HCL 10MG TABLET SR 12HR PO SCH ×3 (05:58→21:02)
[2018-10-31 08:00] VITALS: BP 103/59
[2018-10-31 08:23] LABS: PLATELET ESTIMATE NORMAL
[2018-10-31] MEDS: DANTROLENE SODIUM 25MG CAPSULE PO SCH ×3 (08:50→17:01)
[2018-10-31] MEDS: MULTIVITAMINS,THER W-MINERALS TABLET PO SCH (08:50)
[2018-10-31] MEDS: FUROSEMIDE 40MG TABLET PO SCH (08:50)
[2018-10-31] MEDS: CALCIUM CARBONATE/VITAMIN D3 500MG TABLET PO SCH ×2 (08:51→17:01)
[2018-10-31] MEDS: CHOLECALCIFEROL (D3) 1000 UNIT TABLET PO SCH (08:51)
[2018-10-31] MEDS: FAMOTIDINE 20MG TABLET PO SCH ×2 (08:51→21:02)
[2018-10-31] MEDS: MAGNESIUM OXIDE 400MG TABLET PO SCH (08:51)
[2018-10-31] MEDS: GABAPENTIN 100MG CAPSULE PO SCH ×3 (08:51→17:01)
[2018-10-31] MEDS: OXYBUTYNIN CHLORIDE 5MG TABLET PO SCH ×3 (08:51→17:01)
[2018-10-31] MEDS: GUAIFENESIN 600MG ER TABLET PO SCH ×2 (09:00→21:02)
[2018-10-31] MEDS: NA PHOS,M-B/NA PHOS,DI-BA ENEMA 118ML PR PRN (10:35)
[2018-10-31 12:00] VITALS: BP 104/56
[2018-10-31] MEDS ORDERED: DEXTROSE 50% WATER 50ML SYRINGE IV PRN (14:00)
[2018-10-31] MEDS: SODIUM CHLORIDE 0.9% INJ 3ML FLUSH IVF SCH ×2 (14:00→21:12)
[2018-10-31 16:00] VITALS: BP 106/55
[2018-10-31] MEDS: BLOOD SUGAR DIAGNOSTIC STRIP TEST SCH ×2 (16:57→21:12)
[2018-10-31] MEDS: ATORVASTATIN CALCIUM 40MG TABLET PO SCH (17:01)
[2018-10-31] MEDS: RIVAROXABAN 20 MG TABLET PO SCH (17:02)
[2018-10-31] MEDS: INSULIN LISPRO 100 UNITS/ML SUBCUT SCH ×2 (18:25→21:00)
[2018-10-31 20:00] VITALS: BP 115/60
[2018-10-31] MEDS: TAMSULOSIN HCL 0.4MG SR CAPSULE PO SCH (21:02)
[2018-10-31 23:49] LABS: BASOPHILS % 0.9 % (0.0-2.0); EOSINOPHILS % 6.3 % (0.0-5.0); HEMATOCRIT. 36.9 % (42.0-52.0); HEMOGLOBIN. 12.1 g/dL (14.0-18.0); LYMPHOCYTES % 30.6 % (20.0-50.0); MEAN CORPUSCULAR HEMOGLOBIN 32.2 pg (28.0-32.0); MEAN CORPUSCULAR VOLUME 97.8 fL (80.0-94.0); MEAN PLATELET VOLUME 7.5 fl (7.4-10.4); NEUTROPHILS % 50.2 % (40.0-76.0); PLATELET 208 x1000/uL (130-400); RED BLOOD CELL COUNT 3.77 mill/uL (4.7-6.1); RED CELL DISTRIBUTION WIDTH 14.2 % (11.6-14.6)
[2018-11-01] VITALS (7 sets, daily range): BP systolic 92–118; BP diastolic 44–74
[2018-11-01 00:03] LABS: CHLORIDE 104 mEq/L (98-107)
[2018-11-01 00:10] LABS: LDL CHOLESTEROL 29 mg/dL (5-100)
[2018-11-01 00:11] LABS: HDL CHOLESTEROL 34 mg/dL (40-59)
[2018-11-01] MEDS: IPRATROPIUM/ALBUTEROL 0.5-3(2.5)MG/3ML NEB INH SCH ×4 (01:34→20:22)
[2018-11-01] MEDS: HYDROCODONE/ACETAMINOPHEN 10/325MG TABLET PO PRN ×3 (02:21→16:47)
[2018-11-01] MEDS: AMIKACIN 500MG in SODIUM CHLORIDE 0.9% 100ML IV SCH ×2 (02:30→15:31)
[2018-11-01] MEDS: OXYCODONE HCL 10MG TABLET SR 12HR PO SCH ×2 (05:29→13:08)
[2018-11-01] MEDS: SODIUM CHLORIDE 0.9% INJ 3ML FLUSH IVF SCH ×2 (05:46→13:08)
[2018-11-01] MEDS: BLOOD SUGAR DIAGNOSTIC STRIP TEST SCH ×4 (06:47→21:24)
[2018-11-01] MEDS: INSULIN LISPRO 100 UNITS/ML SUBCUT SCH ×4 (07:23→21:00)
[2018-11-01] MEDS: MAGNESIUM OXIDE 400MG TABLET PO SCH (09:03)
[2018-11-01] MEDS: FAMOTIDINE 20MG TABLET PO SCH ×2 (09:03→21:16)
[2018-11-01] MEDS: FUROSEMIDE 40MG TABLET PO SCH (09:03)
[2018-11-01] MEDS: MULTIVITAMINS,THER W-MINERALS TABLET PO SCH (09:04)
[2018-11-01] MEDS: GABAPENTIN 100MG CAPSULE PO SCH ×3 (09:04→16:47)
[2018-11-01] MEDS: CALCIUM CARBONATE/VITAMIN D3 500MG TABLET PO SCH ×2 (09:04→16:46)
[2018-11-01] MEDS: GUAIFENESIN 600MG ER TABLET PO SCH (09:05)
[2018-11-01] MEDS: DANTROLENE SODIUM 25MG CAPSULE PO SCH ×3 (09:05→16:46)
[2018-11-01] MEDS: OXYBUTYNIN CHLORIDE 5MG TABLET PO SCH ×3 (09:05→16:47)
[2018-11-01] MEDS: CHOLECALCIFEROL (D3) 1000 UNIT TABLET PO SCH (09:05)
[2018-11-01] MEDS: ATORVASTATIN CALCIUM 40MG TABLET PO SCH (16:47)
[2018-11-01] MEDS: RIVAROXABAN 20 MG TABLET PO SCH (16:47)
[2018-11-01] MEDS: TAMSULOSIN HCL 0.4MG SR CAPSULE PO SCH (21:15)
[2018-11-02] VITALS: BP 109/47
[2018-11-02] MEDS: IPRATROPIUM/ALBUTEROL 0.5-3(2.5)MG/3ML NEB INH SCH ×4 (00:32→22:08)
[2018-11-02] MEDS: HYDROCODONE/ACETAMINOPHEN 10/325MG TABLET PO PRN ×4 (00:33→21:40)
[2018-11-02] MEDS: GUAIFENESIN 600MG ER TABLET PO SCH ×3 (00:34→21:39)
[2018-11-02] MEDS: AMIKACIN 500MG in SODIUM CHLORIDE 0.9% 100ML IV SCH ×2 (03:22→17:50)
[2018-11-02] MEDS: OXYCODONE HCL 10MG TABLET SR 12HR PO PRN ×2 (03:23→18:35)
[2018-11-02 04:00] VITALS: BP 107/50
[2018-11-02] MEDS: BLOOD SUGAR DIAGNOSTIC STRIP TEST SCH ×4 (07:20→21:00)
[2018-11-02 08:00] VITALS: BP 104/43
[2018-11-02] MEDS: FUROSEMIDE 40MG TABLET PO SCH (09:26)
[2018-11-02] MEDS: DANTROLENE SODIUM 25MG CAPSULE PO SCH ×4 (09:26→23:09)
[2018-11-02] MEDS: CHOLECALCIFEROL (D3) 1000 UNIT TABLET PO SCH (09:26)
[2018-11-02] MEDS: MAGNESIUM OXIDE 400MG TABLET PO SCH (09:26)
[2018-11-02] MEDS: CALCIUM CARBONATE/VITAMIN D3 500MG TABLET PO SCH ×2 (09:27→23:06)
[2018-11-02] MEDS: FAMOTIDINE 20MG TABLET PO SCH ×2 (09:27→21:38)
[2018-11-02] MEDS: MULTIVITAMINS,THER W-MINERALS TABLET PO SCH (09:27)
[2018-11-02] MEDS: GABAPENTIN 100MG CAPSULE PO SCH ×3 (09:27→23:06)
[2018-11-02] MEDS: OXYBUTYNIN CHLORIDE 5MG TABLET PO SCH ×3 (09:31→23:07)
[2018-11-02 12:00] VITALS: BP 108/65
[2018-11-02] MEDS: INSULIN LISPRO 100 UNITS/ML SUBCUT SCH ×3 (12:18→23:34)
[2018-11-02] MEDS: NYSTATIN POWDER 15GM TOP SCH ×2 (15:00→23:09)
[2018-11-02] MEDS: NA PHOS,M-B/NA PHOS,DI-BA ENEMA 118ML PR PRN (15:55)
[2018-11-02 16:00] VITALS: BP 97/48
[2018-11-02 20:00] VITALS: BP 97/63
[2018-11-02] MEDS: TAMSULOSIN HCL 0.4MG SR CAPSULE PO SCH (21:39)
[2018-11-02] MEDS: RIVAROXABAN 20 MG TABLET PO SCH (23:09)
[2018-11-02] MEDS: ATORVASTATIN CALCIUM 40MG TABLET PO SCH (23:09)
[2018-11-03] VITALS: BP 102/51
[2018-11-03] MEDS: IPRATROPIUM/ALBUTEROL 0.5-3(2.5)MG/3ML NEB INH SCH ×4 (03:00→22:11)
[2018-11-03 04:00] VITALS: BP 119/72
[2018-11-03] MEDS: AMIKACIN 500MG in SODIUM CHLORIDE 0.9% 100ML IV SCH ×2 (04:34→17:47)
[2018-11-03] MEDS: HYDROCODONE/ACETAMINOPHEN 10/325MG TABLET PO PRN ×3 (04:35→21:26)
[2018-11-03] MEDS: BLOOD SUGAR DIAGNOSTIC STRIP TEST SCH ×4 (07:20→21:19)
[2018-11-03] MEDS: INSULIN LISPRO 100 UNITS/ML SUBCUT SCH ×4 (07:50→21:00)
[2018-11-03 08:00] VITALS: BP 111/46
[2018-11-03] MEDS: CALCIUM CARBONATE/VITAMIN D3 500MG TABLET PO SCH ×2 (09:52→17:47)
[2018-11-03] MEDS: GUAIFENESIN 600MG ER TABLET PO SCH ×2 (09:52→21:17)
[2018-11-03] MEDS: DANTROLENE SODIUM 25MG CAPSULE PO SCH ×3 (09:52→17:47)
[2018-11-03] MEDS: CHOLECALCIFEROL (D3) 1000 UNIT TABLET PO SCH (09:52)
[2018-11-03] MEDS: MULTIVITAMINS,THER W-MINERALS TABLET PO SCH (09:52)
[2018-11-03] MEDS: OXYBUTYNIN CHLORIDE 5MG TABLET PO SCH ×3 (09:53→17:47)
[2018-11-03] MEDS: FAMOTIDINE 20MG TABLET PO SCH ×2 (09:53→21:19)
[2018-11-03] MEDS: GABAPENTIN 100MG CAPSULE PO SCH ×3 (09:53→17:47)
[2018-11-03] MEDS: FUROSEMIDE 40MG TABLET PO SCH (09:53)
[2018-11-03] MEDS: MAGNESIUM OXIDE 400MG TABLET PO SCH (09:53)
[2018-11-03] MEDS: OXYCODONE HCL 10MG TABLET SR 12HR PO PRN ×2 (09:54→18:11)
[2018-11-03] MEDS: NYSTATIN POWDER 15GM TOP SCH ×3 (10:01→17:47)
[2018-11-03 12:00] VITALS: BP 101/62
[2018-11-03 16:00] VITALS: BP 107/57
[2018-11-03] MEDS: ATORVASTATIN CALCIUM 40MG TABLET PO SCH (17:47)
[2018-11-03] MEDS: RIVAROXABAN 20 MG TABLET PO SCH (17:47)
[2018-11-03 20:00] VITALS: BP 116/57
[2018-11-03] MEDS: TAMSULOSIN HCL 0.4MG SR CAPSULE PO SCH (21:19)
[2018-11-03] MEDS: SODIUM CHLORIDE 0.9% INJ 3ML FLUSH IVF SCH ×2 (22:00→22:18)
[2018-11-04] MEDS: AMIKACIN 500MG in SODIUM CHLORIDE 0.9% 100ML IV SCH (02:32)
[2018-11-04] MEDS: IPRATROPIUM/ALBUTEROL 0.5-3(2.5)MG/3ML NEB INH SCH ×2 (02:44→10:14)
[2018-11-04] MEDS: OXYCODONE HCL 10MG TABLET SR 12HR PO PRN (02:49)
[2018-11-04] MEDS: SODIUM CHLORIDE 0.9% INJ 3ML FLUSH IVF SCH (06:00)
[2018-11-04] MEDS: BLOOD SUGAR DIAGNOSTIC STRIP TEST SCH (06:44)
[2018-11-04] MEDS: HYDROCODONE/ACETAMINOPHEN 10/325MG TABLET PO PRN (07:03)
[2018-11-04] MEDS: INSULIN LISPRO 100 UNITS/ML SUBCUT SCH (07:50)
[2018-11-04 08:00] VITALS: BP 110/47
[2018-11-04] MEDS: OXYBUTYNIN CHLORIDE 5MG TABLET PO SCH (09:08)
[2018-11-04] MEDS: NYSTATIN POWDER 15GM TOP SCH (09:08)
[2018-11-04] MEDS: GABAPENTIN 100MG CAPSULE PO SCH (09:08)
[2018-11-04] MEDS: DANTROLENE SODIUM 25MG CAPSULE PO SCH (09:08)
[2018-11-04] MEDS: CALCIUM CARBONATE/VITAMIN D3 500MG TABLET PO SCH (09:08)
[2018-11-04] MEDS: MULTIVITAMINS,THER W-MINERALS TABLET PO SCH (09:09)
[2018-11-04] MEDS: FAMOTIDINE 20MG TABLET PO SCH (09:09)
[2018-11-04] MEDS: GUAIFENESIN 600MG ER TABLET PO SCH (09:10)
[2018-11-04] MEDS: FUROSEMIDE 40MG TABLET PO SCH (09:10)
[2018-11-04] MEDS: MAGNESIUM OXIDE 400MG TABLET PO SCH (09:10)
[2018-11-04] MEDS: CHOLECALCIFEROL (D3) 1000 UNIT TABLET PO SCH (09:15)
[2018-11-04 12:00] VITALS: BP 110/52
== END 2018-11-04 13:44 | disposition home health service (06) | DRG 871 ==
LOC: ER 12:04 → EDBEDREQ 21:04 → EDBEDREQTM 21:04 → EDBEDREQSVC 21:04 → 6EST 21:06 → EDBEDREQTM 21:08 → EDBEDREQ 21:08 → ENRESERV 10-23 01:53 → 6EST 10-23 07:00
PROVIDERS: ADMIT Family Medicine; ATTEND Family Medicine
PROC: 06HY33Z Insertion of Infusion Device into Lower Vein, Percutaneous Approach (ICD-10-PCS; principal; 2018-10-22)
PROC: B54BZZA Ultrasonography of Right Lower Extremity Veins, Guidance (ICD-10-PCS; 2018-10-22)
DX: A41.9 Sepsis, unspecified organism (principal); L89.893 Pressure ulcer of other site, stage 3; G82.50 Quadriplegia, unspecified; J96.20 Acute and chronic respiratory failure, unspecified whether with hypoxia or hypercapnia; L97.429 Non-pressure chronic ulcer of left heel and midfoot with unspecified severity; G93.40 Encephalopathy, unspecified; E46 Unspecified protein-calorie malnutrition; N12 Tubulo-interstitial nephritis, not specified as acute or chronic; I82.412 Acute embolism and thrombosis of left femoral vein; I50.9 Heart failure, unspecified; E11.65 Type 2 diabetes mellitus with hyperglycemia; L89.210 Pressure ulcer of right hip, unstageable; I11.0 Hypertensive heart disease with heart failure; G89.4 Chronic pain syndrome; J45.909 Unspecified asthma, uncomplicated; F31.9 Bipolar disorder, unspecified; K59.00 Constipation, unspecified; E11.621 Type 2 diabetes mellitus with foot ulcer; D64.9 Anemia, unspecified; F12.90 Cannabis use, unspecified, uncomplicated; E66.9 Obesity, unspecified; B96.4 Proteus (mirabilis) (morganii) as the cause of diseases classified elsewhere; N31.9 Neuromuscular dysfunction of bladder, unspecified; Z68.30 Body mass index [BMI] 30.0-30.9, adult; Z88.1 Allergy status to other antibiotic agents; Z76.5 Malingerer [conscious simulation]; Z86.718 Personal history of other venous thrombosis and embolism; Z93.0 Tracheostomy status; Z87.440 Personal history of urinary (tract) infections; Z79.899 Other long term (current) drug therapy; Z79.82 Long term (current) use of aspirin
CPT/HCPCS: 36415; 36569; 71045; 74018; 76937; 80048; 80061; 80150; 80305; 82962; 83036; 83605; 84134; 87077; 87186; 92610; 93970; 94640; 96365; 96375; 99285; A6261; C1893; J0278; J0696; J1650; J1815; J2270; J2543; J3370; J3490; J7030; J7040; J7050; J7060; J7620